=== PATIENT | female | born 1980 | race African-American/Black ===

== ENCOUNTER → 2019-06-13 | Emergency (ER) | payer SELFPAY ==
[~2019-06-13] VITALS: Ht 180.3 cm; Wt 138.3 kg
[~2019-06-13] MED LIST: MORPHINE SULFATE 4 MG/ML SYR/VIAL IV ONE; ONDANSETRON HCL 4 MG/2 ML VIAL IV ONE; PANTOPRAZOLE 40 MG/10 ML VIAL INJ IV STA; SODIUM CHLORIDE 0.9% 500 ML IVB ONE
[2019-06-13 14:39] LABS: Basophils # (auto) 0 10 ^3/uL (0-0.2); Eosinophils # (auto) 0.1 10 ^3/uL (0-0.8); Hematocrit 29.9 % (36.0-46.0); Hemoglobin 9.1 g/dL (12.2-16.2); Mean Corpuscular Hemoglobin 17.2 pg (28.0-32.0); Mean Corpuscular Hgb Conc. 30.5 g/dL (32.0-36.0); Mean Corpuscular Volume 56.3 fL (80.0-100.0); Monocytes # (auto) 0.6 10 ^3/uL (0-1.3); White Blood Cell 6.5 10^3/uL (4.4-10.8)
[2019-06-13 14:40] LABS: Basophils % (auto) 0.5 % (0.0-2.0); Eosinophils % (auto) 0.9 % (0.0-7.0); Lymphocytes # (auto) 1.9 10 ^3/uL (0.4-5.4); Lymphocytes % (auto) 28.7 % (10.0-50.0); Monocytes % (auto) 8.8 % (0.0-12.0); Neutrophils % (auto) 61.1 % (37.0-80.0); Nucleated Red Blood Cells % 0.1 %; Platelet Count (auto) 369 10^3/uL (140-450); Red Blood Cells 5.32 10^6/uL (4.0-5.20); Red Cell Distribution Width 19.3 % (11.8-14.3)
[2019-06-13 14:43] LABS: Albumin 3.2 g/dL (3.4-5.0); Calcium 8.3 mg/dL (8.5-10.1); Potassium 3.2 mmol/L (3.5-5.1)
[2019-06-13 14:46] LABS: BUN/Creatinine Ratio 8.5; Bilirubin, Total 0.3 mg/dL (0.2-1.0); Total Protein 7.3 g/dL (6.4-8.2)
[2019-06-13 15:46] VITALS: BP 149/77
[2019-06-13 16:14] LABS: Urine Bacteria NONE SEEN /hpf (None Seen); Urine Blood 1+ /uL (Negative); Urine WBC 1 /hpf (0 - 5)
== END | disposition home or self-care (01) ==
LOC: ER 13:21
DX: K29.70 Gastritis, unspecified, without bleeding (principal); I10 Essential (primary) hypertension
CPT/HCPCS: 36415; 76705; 80053; 81001; 81025; 83690; 85025

== ENCOUNTER 2022-03-19 00:20 | Emergency (ER) | payer MEDICAID ==
[~2022-03-19] VITALS: Ht 175.3 cm; Wt 145.0 kg
[2022-03-19 08:55] LABS: Basophils # (auto) 0.1 10 ^3/uL (0-0.2); Eosinophils # (auto) 0.1 10 ^3/uL (0-0.8); Lymphocytes # (auto) 1.5 10 ^3/uL (0.4-5.4); Mean Corpuscular Hemoglobin 15.2 pg (28.0-32.0); Monocytes # (auto) 0.5 10 ^3/uL (0-1.3); Monocytes % (auto) 10.1 % (0.0-12.0); Nucleated Red Blood Cells % 0.1 %
[2022-03-19 08:58] LABS: Basophils % (auto) 1.8 % (0.0-2.0); Eosinophils % (auto) 1.7 % (0.0-7.0); Hemoglobin 8.4 g/dL (12.2-16.2); Mean Corpuscular Hgb Conc. 28.8 g/dL (32.0-36.0); Mean Corpuscular Volume 52.6 fL (80.0-100.0); Neutrophils % (auto) 57.4 % (37.0-80.0); Red Blood Cells 5.52 10^6/uL (4.0-5.20); White Blood Cell 5.1 10^3/uL (4.4-10.8)
[2022-03-19 09:04] LABS: Red Cell Distribution Width 21.2 % (11.8-14.3)
[2022-03-19 09:14] LABS: Potassium 3.6 mmol/L (3.5-5.1)
[2022-03-19 09:21] LABS: Albumin 3.8 g/dL (3.4-5.0); BUN/Creatinine Ratio 11.2; Bilirubin, Total 0.6 mg/dL (0.2-1.0); Calcium 9.3 mg/dL (8.5-10.1); Total Protein 8.1 g/dL (6.4-8.2)
[2022-03-19] MEDS ORDERED: FERR1TAB36 PO (10:04)
[2022-03-19] MEDS ORDERED: ASCO500T11 PO (10:04)
[2022-03-19] MEDS ORDERED: TRIATAB3 PO (10:04)
[2022-03-19 10:40] VITALS: BP 150/90
== END 2022-03-19 10:44 | disposition left against medical advice (07) ==
LOC: ER 00:20
DX: R42 Dizziness and giddiness (principal); M79.601 Pain in right arm; I10 Essential (primary) hypertension
CPT/HCPCS: 36415; 71045; 80053; 84484; 85025; 93005